=== PATIENT | male | born 1985 | race African-American/Black ===

== ENCOUNTER 2023-08-12 12:55 | Emergency (ER) | payer OTHER ==
[2023-08-12 13:10] VITALS: BP 143/87; PULSE 86; RESP 18; TEMP 97.8; BMI 32.5
[2023-08-12] MEDS ORDERED: ACETAMINOPHEN 500 MG TABLET (FP) PO ONE ×2 (13:32→13:39)
[2023-08-12] MEDS ORDERED: IBUPROFEN 400 MG TABLET (FP) PO ONE ×2 (13:32→13:45)
[2023-08-12] MEDS ORDERED: ACETAMINOPHEN 500 MG TABLET (FP) ONE (13:45)
== END 2023-08-12 14:23 | disposition home or self-care (01) ==
LOC: JERFT 12:55
DX: R22.31 Localized swelling, mass and lump, right upper limb (principal); L03.011 Cellulitis of right finger; M79.644 Pain in right finger(s)
CPT/HCPCS: 73130-TC-RT-FY; 99283-25

== ENCOUNTER 2023-08-20 17:15 | Emergency (ER) | payer OTHER ==
[2023-08-20 17:28] VITALS: BMI 32.5
[2023-08-20] MEDS ORDERED: METOCLOPRAMIDE HCL INJECTION 10 MG/2 ML VIAL IVPUSH ONE (18:29)
[2023-08-20] MEDS ORDERED: ACETAMINOPHEN 1000 MG/100 ML BAG IVPB ONE (18:29)
[2023-08-20] MEDS ORDERED: SODIUM CHLORIDE 0.9% 500 ML INFUS.BAG IV ONE (18:29)
[2023-08-20] MEDS ORDERED: ACETAMINOPHEN INJECTION 100 ML IVPB ONE (18:33)
[2023-08-20] MEDS ORDERED: METOCLOPRAMIDE HCL INJECTION 10 MG/2 ML VIAL ONE (18:33)
[2023-08-20] MEDS ORDERED: MECLIZINE HCL 12.5 MG TABLET PO ONE (18:50)
[2023-08-20 19:02] LABS: BASO % 0.3 % (0-2.0); EOS % 0.7 % (0-4.5); HEMATOCRIT 48.6 % (35.4-49); HEMOGLOBIN 16.3 GM/dL (11.7-16.9); MCH 28.7 pg (25.7-33.7); MCHC 33.7 g/dl (32.0-35.9); MEAN CELL VOLUME 85.4 fl (80-96); MEAN PLT VOLUME 6.7 fl (7.5-11.1); MONO % 2.9 % (3.8-10.2); NEUT % 70.1 % (42.8-82.8); PLATELET COUNT 337 10^3/uL (134-434); RBC 5.69 M/mm3 (4.00-5.60); RDW 14.8 % (11.9-15.9); WHITE BLOOD COUNT 9.1 K/mm3 (4.0-10.0)
[2023-08-20] MEDS ORDERED: MECLIZINE HCL 12.5 MG TABLET ONE (19:04)
[2023-08-20 19:23] LABS: POTASSIUM 4.2 mmol/L (3.5-5.1)
[2023-08-20 19:25] LABS: CALCIUM 9.5 mg/dL (8.5-10.1)
[2023-08-20 19:26] LABS: BLOOD UREA NITROGEN 14.6 mg/dL (7-18)
[2023-08-20 19:29] LABS: CREATININE 0.9 mg/dL (0.55-1.3)
[2023-08-20 19:31] LABS: TOT PROT 8.6 g/dl (6.4-8.2)
[2023-08-20 19:39] VITALS: BP 128/82; PULSE 85; RESP 20; TEMP 98.1
== END 2023-08-20 20:04 | disposition home or self-care (01) ==
LOC: JER 17:15
PROC: 3E033NZ Introduction of Analgesics, Hypnotics, Sedatives into Peripheral Vein, Percutaneous Approach (ICD-10-PCS; principal; 2023-08-20)
PROC: 3E033GC Introduction of Other Therapeutic Substance into Peripheral Vein, Percutaneous Approach (ICD-10-PCS; 2023-08-20)
DX: R51.9 Headache, unspecified (principal); R42 Dizziness and giddiness; R53.1 Weakness
CPT/HCPCS: 36415; 80053; 85025; 99284-25